=== PATIENT | male | born 1970 | race Caucasian/White ===

== ENCOUNTER 2019-06-12 13:45 | Emergency (ER) | payer MEDICAID ==
[~2019-06-12] VITALS: Ht 172.7 cm; Wt 90.9 kg
[2019-06-12 15:17] LABS: CLARITY,URINE CLEAR (Clear); COLOR,URINE STRAW (Yellow); GLUCOSE, URINE NEGATIVE (Neg); KETONES,URINE NEGATIVE (Neg); LEUKOCYTE ESTERASE ,URINE NEGATIVE (Neg); NITRITES, URINE NEGATIVE (Neg); OCCULT BLOOD,URINE MODERATE (Neg); PROTEIN,URINE NEGATIVE (Neg); UROBILINOGEN,URINE 0.2 E.U/dL (0.2-1.0)
[2019-06-12 15:23] LABS: UA COLLECTION TYPE CLN CATCH MIDSTREAM
[2019-06-12 15:24] LABS: BACTERIA,URINE FEW /HPF (Neg); MUCUS STRANDS FEW /LPF (Neg); SQUAMOUS EPITHELIAL CELL,UR FEW /LPF (FEW); WBC,URINE 0-4 /HPF (0-4)
[2019-06-12 15:31] LABS: URINE AMPHETAMINE SCREEN POSITIVE (Neg); URINE BARBITUATE SCREEN NEGATIVE (Neg); URINE BENZODIAZEPINES SCREEN NEGATIVE (Neg); URINE CANNABINOID SCREEN POSITIVE (Neg); URINE COCAINE SCREEN NEGATIVE (Neg); URINE METHADONE SCREEN NEGATIVE (Neg); URINE OPIATE SCREEN POSITIVE (Neg); URINE PHENCYCLIDINE SCREEN NEGATIVE (Neg)
[2019-06-12 15:33] LABS: BASOPHILS # (AUTO) 0.1 X10'3 (0-0.2); BASOPHILS % (AUTO) 1.2 % (0-1); EOSINOPHILS # (AUTO) 1.2 X10'3 (0-0.9); EOSINOPHILS % (AUTO) 9.5 % (0-6); HEMOGLOBIN 13.4 g/dl (14.0-17.9); LYMPHOCYTES # (AUTO) 1.7 X10'3 (1.1-4.8); LYMPHOCYTES % (AUTO) 14.1 % (21-51); MEAN CORPUSCULAR HEMOGLOBIN 31.4 PG (27.0-31.0); MEAN CORPUSCULAR HGB CONC 33.4 g/dL (33.0-36.5); MEAN CORPUSCULAR VOLUME 93.8 FL (78-98); MEAN PLATELET VOLUME 6.5 FL (7.4-10.4); MONOCYTES # (AUTO) 0.7 X10'3 (0-0.9); MONOCYTES % (AUTO) 5.7 % (2-12); NEUTROPHILS # (AUTO) 8.6 X10'3 (1.8-7.7); NEUTROPHILS % (AUTO) 69.5 % (42-75); PLATELET COUNT 400 X10'3 (140-440); RED BLOOD COUNT 4.26 X10'6 (4.70-6.10); RED CELL DISTRIBUTION WIDTH 13.1 % (11.5-14.5); WHITE BLOOD COUNT 12.3 X10'3 (4.5-11.0)
[2019-06-12 15:50] LABS: ALANINE AMINOTRANSFERASE 20 U/L (12-78); ALBUMIN 2.6 G/DL (3.4-5.0); ALBUMIN/GLOBULIN RATIO 0.5 (1.1-1.5); ALKALINE PHOSPHATASE 96 IU/L (46-116); ANION GAP 6 (8-16); ASPARTATE AMINO TRANSFERASE 18 U/L (10-37); BILIRUBIN,TOTAL 0.4 MG/DL (0.1-1.0); BLOOD UREA NITROGEN 10 MG/DL (7-18); BUN/CREATININE RATIO 11.8 (5.4-32.0); C-REACTIVE PROTEIN 10.65 MG/DL (0.0-0.5); CALCIUM 8.3 MG/DL (8.5-10.1); CHLORIDE 97 MMOL/L (99-107); CREATININE 0.85 MG/DL (0.60-1.10); ETHANOL < 0.010 GM/DL (0.0-0.010); GLUCOSE 110 MG/DL (70-104); LIPASE 68 U/L (73-393); POTASSIUM 3.6 MMOL/L (3.5-5.1); SODIUM 136 MMOL/L (135-145); TOTAL CARBON DIOXIDE 33.3 MMOL/L (24-32); TOTAL PROTEIN 7.7 G/DL (6.4-8.2); eGFR > 90 ML/MIN
[2019-06-12] MEDS ORDERED: IBUP-1986 PO (17:18)
[2019-06-12 17:42] VITALS: BP 169/78
== END 2019-06-12 17:52 | disposition home or self-care (01) ==
LOC: ER 13:45
DX: I77.6 Arteritis, unspecified (principal); M13.0 Polyarthritis, unspecified; F12.90 Cannabis use, unspecified, uncomplicated; Z72.89 Other problems related to lifestyle; Z79.899 Other long term (current) drug therapy
CPT/HCPCS: 36415; 71045; 80053; 80305; 80320; 81001; 83690; 85025; 85651; 86140; 99284; 99285

== ENCOUNTER 2019-11-06 12:27 | Emergency (ER) | payer MEDICAID ==
[~2019-11-06 12:27] MED LIST: IBUP-1986 PO
[2019-11-06 14:25] LABS: BASOPHILS # (AUTO) 0.1 X10'3 (0-0.2); BASOPHILS % (AUTO) 0.7 % (0-1); EOSINOPHILS % (AUTO) 0 % (0-6); HEMATOCRIT 34.8 % (42.0-52.0); HEMOGLOBIN 11.9 g/dl (14.0-17.9); LYMPHOCYTES # (AUTO) 0.6 X10'3 (1.1-4.8); LYMPHOCYTES % (AUTO) 5.1 % (21-51); MEAN CORPUSCULAR HEMOGLOBIN 32.8 PG (27.0-31.0); MEAN CORPUSCULAR HGB CONC 34.1 g/dL (33.0-36.5); MEAN CORPUSCULAR VOLUME 96.2 FL (78-98); MEAN PLATELET VOLUME 7.4 FL (7.4-10.4); MONOCYTES # (AUTO) 0.3 X10'3 (0-0.9); MONOCYTES % (AUTO) 2.5 % (2-12); NEUTROPHILS # (AUTO) 11.4 X10'3 (1.8-7.7); NEUTROPHILS % (AUTO) 91.7 % (42-75); PLATELET COUNT 235 X10'3 (140-440); RED BLOOD COUNT 3.62 X10'6 (4.70-6.10); RED CELL DISTRIBUTION WIDTH 14.9 % (11.5-14.5); WHITE BLOOD COUNT 12.4 X10'3 (4.5-11.0)
[2019-11-06 14:43] LABS: ALANINE AMINOTRANSFERASE 38 U/L (12-78); ALBUMIN 3.4 G/DL (3.4-5.0); ALKALINE PHOSPHATASE 81 IU/L (46-116); ANION GAP 10 (8-16); ASPARTATE AMINO TRANSFERASE 17 U/L (10-37); BILIRUBIN,TOTAL 0.5 MG/DL (0.1-1.0); BLOOD UREA NITROGEN 37 MG/DL (7-18); BUN/CREATININE RATIO 19.6 (5.4-32.0); CALCIUM 9.2 MG/DL (8.5-10.1); CHLORIDE 95 MMOL/L (99-107); CREATININE 1.89 MG/DL (0.60-1.10); GLUCOSE 155 MG/DL (70-104); POTASSIUM 3.7 MMOL/L (3.5-5.1); SODIUM 133 MMOL/L (135-145); TOTAL CARBON DIOXIDE 28.3 MMOL/L (24-32); TOTAL PROTEIN 6.7 G/DL (6.4-8.2); eGFR 38 ML/MIN
[2019-11-06 14:49] LABS: MAGNESIUM 1.6 MG/DL (1.5-2.4)
[2019-11-06 15:34] VITALS: BP 100/58
[2019-11-06] MEDS ORDERED: FURO40TA4 PO (15:40)
[2019-11-06] MEDS ORDERED: PANT40TA54 PO (15:40)
[2019-11-06] MEDS ORDERED: PRED20TA PO (15:52)
[2019-11-06] MEDS ORDERED: acetaminophen 325mg tablet PO PRN (16:20)
[2019-11-06] MEDS ORDERED: magnesium 2GM in 50ml NS 50 ML IV PRN (16:20)
[2019-11-06] MEDS ORDERED: potassium Cl 20 mEq SR tablet PO PRN ×2 (16:20)
[2019-11-06] MEDS ORDERED: magnesium Cl slow-release 64mg tablet PO PRN (16:20)
[2019-11-06] MEDS ORDERED: ondansetron/PF 4mg/2ml inj IV PRN (16:20)
[2019-11-06] MEDS ORDERED: potassium CL 10mEq/100ml bag 100 ML IV PRN ×2 (16:20)
[2019-11-06] MEDS ORDERED: magnesium 4gm in 100ml NS 100 ML IV PRN (16:20)
[2019-11-06 16:34] LABS: URINE AMPHETAMINE SCREEN NEGATIVE (Neg); URINE BARBITUATE SCREEN NEGATIVE (Neg); URINE BENZODIAZEPINES SCREEN NEGATIVE (Neg); URINE CANNABINOID SCREEN NEGATIVE (Neg); URINE COCAINE SCREEN NEGATIVE (Neg); URINE METHADONE SCREEN NEGATIVE (Neg); URINE OPIATE SCREEN NEGATIVE (Neg); URINE PHENCYCLIDINE SCREEN NEGATIVE (Neg)
--- NOTE | 2019-11-06 16:34 | NUR ---
PT REQUESTED TO SPEAK WITH THE MANAGER BANQUET. PT IS UNHAPPY THAT HE HAS NOT BEEN ALLOWED TO HAVE ANYTHING TO EAT AND HE WANTS TO LEAVE THE ER TO HAVE A CIGARETTE. PUBLIC HEALTH NUTRITIONIST WENT TO BEDSIDE, IT WAS EXPLAINED THAT PT WAS MADE A NPO STATUS AND EXPLAINED THAT IT MENT NOTHING BY MOUTH AND THAT HE COULD NOT HAVE ANYTHING TO EAT BUT STATES THAT I WOULD SPEAK TO THE PROVIDER TO SEE IF HE COULD HAVE A LITTLE FOOD. PT ALSO WANTING TO LEAVE TO SMOKE, STATING "IM THE ONE DYING OF A HEART CONDITION AND I SHOULD BE ABLE TO GO SMOKE". PT INFORMED THAT [facility] IS A NO SMOKING CAMPUS AND THAT WE COULD PROVIDE HIM WITH A NICOTINE PATCH BUT PT ADIMATELY REFUSED. PROVIDER ALSO AT BEDSIDE EXPLAINING THAT PT IS SCHED FOR AN ECHOCARDIOGRAM AND THAT HE COULD NOT GO OUT TO SMOKE, THAT IT WAS NOT ALLOWED. PT BECAME ADIMATE THAT AND ANGRY, STATING THAT "IM AN ALCOHOLIC, DRINK A 5TH A DAY, I SMOKE, I HAVE A HEART CONDITION AND I NEED A CIGARETTE!!" PT WAS ADVISED THAT IF HE LEAVES THE ER HE WOULD BE CONSIDERED BEING AMA AND WOULD HAVE BE READMITTED SHOULD HE WANT TO RETURN. PT BECAME INCREASINGLY ANGRY, STOOD UP OFF THE GURNY, PULLED ALL HIS LEADS OFF TIED UP HIS SCRUB PANTS, REFUSED TO SIGN THE AMA FORM STATING "IM NOT SIGNING THAT FUCKING FORM" AND PROCEEDED TO LEAVE. PT WAS EXCORTED OUT OF THE ER BY SECURITY. SECURITY STATES THAT PT BECAME DIFFICULT IN THE PARKING LOT, [facility] HAPPENED TO BE PRESENT AND INTERVIENED. PT IS NOTED TO HAD LEFT AMA FROM [facility] EARLI[facility] TODAY FOR THE EXACT SAME REASONS MENTIONED ABOVE. Addendum: 11/06/19 at 1700 by BHAVIN HOSPITALIST NOTIFIED THAT PT LEFT AMA AND REQUESTED THAT ALL ADMIT ORDERS BE CANCLED.
[2019-11-06] MEDS ORDERED: K and/or MAG REPLACEMENT MC SCH (20:00)
== END 2019-11-06 17:00 | disposition left against medical advice (07) ==
LOC: ER 12:27 → ED HOLD 16:17 → UNDOADMIN 16:17 → UNDODISIN 17:00 → ER 17:00
DX: I50.9 Heart failure, unspecified (principal); N17.9 Acute kidney failure, unspecified; E87.1 Hypo-osmolality and hyponatremia; F10.10 Alcohol abuse, uncomplicated; F12.90 Cannabis use, unspecified, uncomplicated; F17.200 Nicotine dependence, unspecified, uncomplicated; Z79.899 Other long term (current) drug therapy; Y90.9 Presence of alcohol in blood, level not specified
CPT/HCPCS: 71045; 80053; 80305; 83735; 83880; 84484; 85025; 93005; 99285; G0378